=== PATIENT | male | born 1945 | race Caucasian/White ===

== ENCOUNTER 2023-04-11 12:47 | Outpatient (CLI) | payer MEDICARE, BC ==
[~2023-04-11 12:47] MED LIST: ATOR20TA66 PO; FINA5TAB11 PO; FLO0.4C PO; OMEP10CA5 PO; PER5325T PO; SOLI10TA2 PO; TEST75GE TOP
[2023-04-11] MEDS ORDERED: BARIUM SULFATE 340 ML SUSP.RECON***PROCEDURE AREA ONLY**DONT ENTER PO ONE (14:00)
== END 2023-04-11 23:59 | disposition home or self-care (01) ==
LOC: RAD 12:47
PROVIDERS: ATTEND Surgery
DX: K44.9 Diaphragmatic hernia without obstruction or gangrene (principal)
CPT/HCPCS: 74220